=== PATIENT | male | born 1975 | race Caucasian/White ===

== ENCOUNTER → 2017-06-04 15:10 | Emergency (ER) | payer SELFPAY ==
[~2017-06-04 15:10] MED LIST: Aspirin Low Dose CHEW TAB* 81 MG ONE; Aspirin Low Dose CHEW TAB* 81 MG PO ONE; NS 0.9% 1000 ML* 1,000 ML IV ONE; Nitroglycerin TAB 0.4 MG* 0.4 MG TAB SL ONE
[2017-06-04 15:59] LABS: Hematocrit 45 % (42-52); Hemoglobin 15.5 g/dl (14.0-18.0); Mean Corpuscular HGB Conc 34 g/dl (31-36); Mean Corpuscular Hemoglobin 28 pg (27-31); Mean Corpuscular Volume 82 fL (80-94); Mean Platelet Volume 8 um3 (7.4-10.4); Red Blood Count 5.51 10^6/ul (4.0-5.4); Red Cell Distribution Width 14 % (10.5-15); White Blood Count 5.9 10^3/ul (3.5-10.8)
--- NOTE | 2017-06-04 16:14 | RAD ---
HISTORY: Left upper chest pain COMPARISONS: December 08, 2006 VIEWS:1: Single frontal portable view of the chest at 3:46 PM FINDINGS: LINES AND TUBES: None. CARDIOMEDIASTINAL SILHOUETTE: The cardiomediastinal silhouette is normal for portable technique. PLEURA: The costophrenic angles are sharp. No pleural abnormalities are noted. LUNG PARENCHYMA: The lungs are clear. ABDOMEN: The upper abdomen is clear. There is no subphrenic gas. BONES AND SOFT TISSUES: No bone or soft tissue abnormalities are noted. IMPRESSION: NO ACTIVE CARDIOPULMONARY DISEASE.
[2017-06-04 16:32] LABS: Albumin 4.6 g/dL (3.2-5.2); BUN/Creatinine Ratio 11.6 (8-20); C Reactive Protein 9.02 mg/L (< 5.00); Calcium 9.7 mg/dL (8.6-10.3); EGFR African American 93.4 (>60); EGFR Non-African American 72.6 (>60); Globulin 3.2 g/dL (2-4); Magnesium 2.3 mg/dL (1.9-2.7); Total Bilirubin 0.5 mg/dL (0.2-1.0); Total Protein 7.8 g/dL (6.4-8.9)
[2017-06-04 16:50] LABS: TSH (Thyroid Stimulating Horm) 2.42 mcIU/mL (0.34-5.60)
[2017-06-04 17:13] LABS: Potassium 3.7 mmol/L (3.5-5.0)
--- NOTE | 2017-06-04 19:38 | ED ---
Sherrell Farias Rebecca, scribed for Taz Whitney MD on 06/04/17 at 1526 . HPI Chest Pain - HPI Summary HPI Summary: Pt is a 41 y/o M BIBA who presents to ED c/o CP. Pain began at 1415 today while the pt was sitting at his desk and is in the left anterior region with radiation down the LUE. Pain characterized as initially sharp and stinging and now described as tightness and heaviness with some numbness and tingling. At its worst, the pain was moderate, ranked 6/10 and has been intermittent since onset. Treated with Aleve at 0900 this morning. Sx aggravated by nothing, alleviated by sitting up. Additionally c/o mild neck pain and feeling "warm." Denies nausea, diaphoresis, SOB, SEXTON, edema, calf pain and abd pain. Pt had no speech or vision changes. Prior similar episodes of chest pain for the last 8 years s/p football injury and the current pain is similar, but more severe. Last saw PCP 4 months ago. - History of Current Complaint Chief Complaint: EDExtremityUpper Time Seen by Provider: 06/04/17 15:24 Hx Obtained From: Patient Onset/Duration: Started Hours Ago, Still Present Time of Onset: 14:15 Initial Severity: Moderate Pain Intensity: 6 Pain Scale Used: 0-10 Numeric Chest Pain Location: Left Anterior Chest Pain Radiates: Yes Chest Pain Radiates To:: Arm - LUE Character: Heaviness, Sharp/Stabbing, Tightness, Other: - Numbness and tingling Aggravating Factor(s): Nothing Alleviating Factor(s): Upright Position - Sitting up Associated Signs and Symptoms: Positive: Other: - feeling "warm" and mild neck pain. Negative: Shortness of Breath, Diaphoresis, Nausea, Calf Pain/Swelling - Allergy/Home Medications Allergies/Adverse Reactions: Allergies Allergy/AdvReac Type Severity Reaction Status Date / Time Lactose Intolerance Allergy Severe GI ISSUES Verified 06/04/17 15:21 PMH/Surg Hx/FS Hx/Imm Hx Cardiovascular History: Denies: Hx Coronary Artery Disease Sensory History: Denies: Hx Deafness Infectious Disease History: No Infectious Disease History: Denies: Traveled Outside the [place] in Last 30 Days - Family History Known Family History: Positive: Diabetes - Social History Alcohol Use: Weekly Substance Use Type: Reports: None Smoking Status (MU): Former Smoker Review of Systems Positive: Other - feeling "warm". Negative: Skin Diaphoresis Positive: Chest Pain - left anterior with radiation down the LUE Negative: Shortness Of Breath Negative: Abdominal Pain, Nausea Positive: Arthralgia - Mild neck pain, Other - NEGATIVE: calf pain. Negative: Edema Positive: Numbness - Numbness/tingling of the LUE associated with pain. Negative: Headache All Other Systems Reviewed And Are Negative: Yes Physical Exam - Summary Physical Exam Summary: General: well-appearing, no pain distress Skin: warm, color reflects adequate perfusion, dry Head: normal Eyes: EOMI, VALENTÍN ENT: normal Neck: supple, nontender Respiratory: CTA, breath sounds present Cardiovascular: RRR Abdomen: soft, nontender Bowel: present Musculoskeletal: normal, strength/ROM intact Neurological: normal, sensory/motor intact, A&O x3 Psychological: affect/mood appropriate Triage Information Reviewed: Yes Vital Signs On Initial Exam: Initial Vitals Temp Pulse Resp BP Pulse Ox 99 F 84 16 165/93 96 06/04/17 15:11 06/04/17 15:11 06/04/17 15:11 06/04/17 15:11 06/04/17 15:11 Vital Signs Reviewed: Yes - [place] Coma Scale Coma Scale Total: 15 Diagnostics - Vital Signs Vital Signs Temp Pulse Resp BP Pulse Ox 06/04/17 15:15 84 96 06/04/17 15:13 165/93 06/04/17 15:11 99 F 84 16 165/93 96 - Laboratory Lab Results: Lab Results 06/04/17 06/04/17 06/04/17 Range/Units 15:50 15:50 15:50 WBC 5.9 (3.5-10.8) 10^3/ul RBC 5.51 H (4.0-5.4) 10^6/ul Hgb 15.5 (14.0-18.0) g/dl Hct 45 (42-52) % MCV 82 (80-94) fL MCH 28 (27-31) pg MCHC 34 (31-36) g/dl RDW 14 (10.5-15) % Plt Count 212 (150-450) 10^3/ul MPV 8 (7.4-10.4) um3 Neut % (Auto) 58.3 (38-83) % Lymph % (Auto) 27.2 (25-47) % Castro % (Auto) 8.6 (1-9) % Eos % (Auto) 5.1 (0-6) % Baso % (Auto) 0.8 (0-2) % Absolute Neuts (auto) 3.5 (1.5-7.7) 10^3/ul Absolute Lymphs (auto) 1.6 (1.0-4.8) 10^3/ul Absolute Monos (auto) 0.5 (0-0.8) 10^3/ul Absolute Eos (auto) 0.3 (0-0.6) 10^3/ul Absolute Basos (auto) 0 (0-0.2) 10^3/ul Absolute Nucleated RBC 0.01 10^3/ul Nucleated RBC % 0.2 INR (Anticoag Therapy) 0.87 L (0.89-1.11) APTT 31.1 (26.0-36.3) seconds D-Dimer, Quantitative < 200 (Less Than 230) ng/mL Sodium 134 (133-145) mmol/L Potassium 3.7 (3.5-5.0) mmol/L Chloride 103 (101-111) mmol/L Carbon Dioxide 25 (22-32) mmol/L Anion Gap 6 (2-11) mmol/L BUN 13 (6-24) mg/dL Creatinine 1.12 (0.67-1.17) mg/dL Est GFR ( Amer) 93.4 (>60) Est GFR (Non-Af Amer) 72.6 (>60) BUN/Creatinine Ratio 11.6 (8-20) Glucose 93 (70-100) mg/dL Lactic Acid (0.5-2.0) mmol/L Calcium 9.7 (8.6-10.3) mg/dL Magnesium 2.3 (1.9-2.7) mg/dL Total Bilirubin 0.50 (0.2-1.0) mg/dL AST 29 (13-39) U/L ALT 27 (7-52) U/L Alkaline Phosphatase 64 (34-104) U/L Total Creatine Kinase 195 (10-223) U/L CK-MB (CK-2) 2.4 (0.6-6.3) ng/mL Troponin I 0.00 (<0.04) ng/mL C-Reactive Protein 9.02 H (< 5.00) mg/L Total Protein 7.8 (6.4-8.9) g/dL Albumin 4.6 (3.2-5.2) g/dL Globulin 3.2 (2-4) g/dL Albumin/Globulin Ratio 1.4 (1-3) TSH 2.42 (0.34-5.60) mcIU/mL 06/04/17 06/04/17 Range/Units 15:50 18:50 WBC (3.5-10.8) 10^3/ul RBC (4.0-5.4) 10^6/ul Hgb (14.0-18.0) g/dl Hct (42-52) % MCV (80-94) fL MCH (27-31) pg MCHC (31-36) g/dl RDW (10.5-15) % Plt Count (150-450) 10^3/ul MPV (7.4-10.4) um3 Neut % (Auto) (38-83) % Lymph % (Auto) (25-47) % Castro % (Auto) (1-9) % Eos % (Auto) (0-6) % Baso % (Auto) (0-2) % Absolute Neuts (auto) (1.5-7.7) 10^3/ul Absolute Lymphs (auto) (1.0-4.8) 10^3/ul Absolute Monos (auto) (0-0.8) 10^3/ul Absolute Eos (auto) (0-0.6) 10^3/ul Absolute Basos (auto) (0-0.2) 10^3/ul Absolute Nucleated RBC 10^3/ul Nucleated RBC % INR (Anticoag Therapy) (0.89-1.11) APTT (26.0-36.3) seconds D-Dimer, Quantitative (Less Than 230) ng/mL Sodium (133-145) mmol/L Potassium (3.5-5.0) mmol/L Chloride (101-111) mmol/L Carbon Dioxide (22-32) mmol/L Anion Gap (2-11) mmol/L BUN (6-24) mg/dL Creatinine (0.67-1.17) mg/dL Est GFR ( Amer) (>60) Est GFR (Non-Af Amer) (>60) BUN/Creatinine Ratio (8-20) Glucose (70-100) mg/dL Lactic Acid 1.3 (0.5-2.0) mmol/L Calcium (8.6-10.3) mg/dL Magnesium (1.9-2.7) mg/dL Total Bilirubin (0.2-1.0) mg/dL AST (13-39) U/L ALT (7-52) U/L Alkaline Phosphatase (34-104) U/L Total Creatine Kinase (10-223) U/L CK-MB (CK-2) (0.6-6.3) ng/mL Troponin I 0.00 (<0.04) ng/mL C-Reactive Protein (< 5.00) mg/L Total Protein (6.4-8.9) g/dL Albumin (3.2-5.2) g/dL Globulin (2-4) g/dL Albumin/Globulin Ratio (1-3) TSH (0.34-5.60) mcIU/mL Result Diagrams: 06/04/17 15:50 06/04/17 15:50 Lab Statement: Any lab studies that have been ordered have been reviewed, and results considered in the medical decision making process. - Radiology CXR Xray Interpretation: No Acute Changes - NO ACTIVE CARDIOPULMONARY DISEASE. Radiology Interpretation Completed By: Radiologist - EKG 1517 Cardiac Rate: NL - 80 bpm EKG Rhythm: Sinus Rhythm ST Segment: Normal Ectopy: None Re-Evaluation - Re-Evaluation First Eval Re-Evaluation Time: 18:04 Comment: Discussed CXR and lab results with the pt. Second Eval Re-Evaluation Time: 19:34 Change: Improved Comment: Pt is doing very well, discussed plan to D/C the pt who understands and agrees. Chest Pain Course/Dx - Course Assessment/Plan: Pt is a 41 y/o M BIBA who presents to ED c/o CP. Pain began at 1415 today while the pt was sitting at his desk and is in the left anterior region with radiation down the LUE. Pain characterized as initially sharp and stinging and now described as tightness and heaviness with some numbness and tingling. At its worst, the pain was moderate, ranked 6/10 and has been intermittent since onset. Treated with Aleve at 0900 this morning. Sx aggravated by nothing, alleviated by sitting up. Additionally c/o mild neck pain and feeling "warm." Denies nausea, diaphoresis, SOB, SEXTON, edema, calf pain and abd pain. Pt had no speech or vision changes. Prior similar episodes of chest pain for the last 8 years s/p football injury and the current pain is similar, but more severe. Last saw PCP 4 months ago. CXR reveals no acute findings. EKG reveals sinus rhythm with no STEMI. Both troponin of 0.00. In the ED course, pt was administered ASA, NTG and fluids. Elevated BP noted and advised to f/u with PCP. WELL IN ED. SECOND TROPONIN NEGATIVE. RESULTS DISCUSSED WITH PATIENT/. DISCHARGE HOME STABLE; F/U PMD, RETURN IF WORSE. - Diagnoses Provider Diagnoses: Chest pain, Left arm pain Discharge - Discharge Plan Condition: Stable Disposition: HOME Patient Education Materials: Chest Pain (ED), Arm Pain (ED) Referrals: Jamar Calderon MD [Medical Doctor] - Additional Instructions: FOLLOW UP WITH YOUR DOCTOR. RETURN TO THE EMERGENCY DEPARTMENT FOR ANY WORSENING OF YOUR CONDITION; PAIN, SHORTNESS OF BREATH, YOU FEEL ILL, WEAKNESS, NUMBNESS OR QUESTIONS OR CONCERNS. The documentation as recorded by the Sherrell [email or web address] Rebecca accurately reflects the service I personally performed and the decisions made by me, Taz Whitney MD.
[2017-06-04 20:10] VITALS: BP 146/87
== END | disposition home or self-care (01) ==
LOC: ED 15:10
DX: R07.89 Other chest pain (principal); M79.602 Pain in left arm; R20.2 Paresthesia of skin; M54.2 Cervicalgia; Z87.891 Personal history of nicotine dependence
CPT/HCPCS: 36415; 71010; 80053; 82550; 82553; 83605; 83735; 84443; 84484; 85025; 85379; 85610; 85730; 86140; 93005; 96360; 99282; A9270-GY